=== PATIENT | male | born 1990 | race African-American/Black ===

== ENCOUNTER 2019-01-19 20:54 | Emergency (ER) | payer OTHER ==
[~2019-01-19] VITALS: Ht 167.6 cm; Wt 72.6 kg
[2019-01-19 21:42] LABS: ABSOLUTE NEUTROPHILS 6.6 thou/uL (1.4-8.2); BASOPHILS 0.4 % (0.0-2.0); EOSINOPHILS 0.5 % (0.0-3.0); HEMATOCRIT 41.9 % (42.0-52.0); HEMOGLOBIN 14.1 gm/dL (14.0-18.0); MCH 31.4 pg (26.0-34.0); MCHC 33.7 g/dL (28.0-37.0); MCV 93.3 fL (80.0-100.0); MONOCYTES 5.7 % (1.0-8.0); PLATELET COUNT 247 thou/uL (150-400); POLYS 76.4 % (36.0-66.0); RBC 4.49 mil/uL (4.50-6.00); RDW 12.5 % (10.5-14.5); WBC 8.6 thou/uL (4.0-11.0)
[2019-01-19 21:52] LABS: ANION GAP 9 mmol/L (7-16); BUN 8 mg/dL (7-18); CHLORIDE 103 mmol/L (98-107); CO2 29 mmol/L (21-32); GLUCOSE 119 mg/dL (74-106); SODIUM 141 mmol/L (136-145)
[2019-01-19 22:02] LABS: ALBUMIN 4.1 g/dL (3.4-5.0); SGOT 19 U/L (15-37); SGPT 32 U/L (30-65); TOTAL BILIRUBIN 0.3 mg/dL (<0.1-1.0); TOTAL PROTEIN 7.4 g/dL (6.4-8.2); TROPONIN-I <0.06 ng/mL (<0.06)
[2019-01-19] MEDS ORDERED: ULTRAM 50MG TAB50 MG PO (22:17)
[2019-01-19] MEDS ORDERED: VENTOLIN HFA 1818 GM INH (22:17)
[2019-01-19 22:40] VITALS: BP 106/73
--- NOTE | 2019-01-20 08:41 | EKG ---
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
== END 2019-01-19 22:40 ==
LOC: ER 20:54
PROVIDERS: Emergency Medicine Emergency Medical Services
DX: R07.89 Other chest pain (principal); J40 Bronchitis, not specified as acute or chronic; F17.210 Nicotine dependence, cigarettes, uncomplicated